=== PATIENT | female | born 1960 | race American Indian/Alaskan Native ===

== ENCOUNTER 2016-11-11 10:20 | Outpatient (CLI) | payer MEDICARE, OTHER | END 2016-11-11 10:21 | disposition home or self-care (01) | LOC: LABHHL 10:20 | PROVIDERS: ATTEND Internal Medicine | DX: A32.9 Listeriosis, unspecified (principal); I10 Essential (primary) hypertension; F32.9 Major depressive disorder, single episode, unspecified; E03.9 Hypothyroidism, unspecified | CPT/HCPCS: 87045 ==

== ENCOUNTER 2017-03-09 10:54 | Outpatient (CLI) | payer MEDICARE, OTHER ==
--- NOTE | 2017-03-10 08:46 | Mammography Report ---
BILATERAL DIGITAL SCREENING MAMMOGRAM with CAD: 03/09/17 10:54:00 CLINICAL: Routine screening. COMPARISON:03/23/14 FINDINGS: The breasts are almost entirely fatty. No mass, architectural distortion or suspicious calcifications. IMPRESSION: No mammographic evidence of malignancy. BI-RADS CATEGORY: 1 - - Negative RECOMMENDATION: Routine mammographic screening in one year. COMMENT: Patient follow-up letters are generated by our [employer] application.
--- NOTE | 2017-03-10 08:48 | Mammography Report ---
BONE DEXA:03/09/17 10:54:00 CLINICAL: Postmenopausal.Hypothyroidism, hypercalcemia and history of steroid use. TECHNIQUE: Two site bone DEXA performed on an Hologic scanner. FINDINGS: The average BMD of the lumbar spine L1-L4 is 1.014g/cm squared with a T-score of -1.2 and a Z-score of +0.2. The average BMD of the left hip is 0.781g/cm squared with a T-score of -1.6 and a Z-score of by 0.9. IMPRESSION: WHO classification: Osteopenia with increased fracture risk based on the spine and left hip measurements. RECOMMENDATION: Clinical correlation and routine screening. DEFINITIONS: BMD = Bone Mineral Density T-score = BMD related to mean peak bone mass of young adult (mean expressed in Standard Deviation) Z-score = Age matched BMD expressed in SD World Health Organization (WHO) Diagnostic Criteria Normal T-score > -1 SD Osteopenia T-score between -1 and -2.4 SD Osteoporosis T-score -2.5 SD or below NOTE: BMD is not the only risk factor for fracture. One should also consider factors such as the patient's age, risk of falling, previous osteoporotic fracture, family history of osteoporotic fractures, current smoker, and low body weight. Z-scores are not calculated if >80 years of age.
== END 2017-03-09 10:55 | disposition home or self-care (01) ==
LOC: SPVWC 10:54
PROVIDERS: ATTEND Obstetrics & Gynecology Gynecology
DX: Z12.31 Encounter for screening mammogram for malignant neoplasm of breast (principal); M85.88 Other specified disorders of bone density and structure, other site; E03.9 Hypothyroidism, unspecified; E83.52 Hypercalcemia; Z78.0 Asymptomatic menopausal state; Z79.52 Long term (current) use of systemic steroids
CPT/HCPCS: 77080; G0202; 77067

== ENCOUNTER 2017-03-16 13:12 | Outpatient (CLI) | payer MEDICARE, OTHER ==
--- NOTE | 2017-03-16 13:44 | XRay Report ---
X-RAY LEFT CLAVICLE 2 VIEWS: 03/16/17 CLINICAL: Pain. FINDINGS: No fracture or dislocation. Mild acromioclavicular joint arthritis. The glenohumeral joint and the rest of the shoulder are unremarkable. IMPRESSION: Mild acromioclavicular joint arthritis.
== END 2017-03-16 13:13 | disposition home or self-care (01) ==
LOC: SPVIMAG 13:12
PROVIDERS: ATTEND Orthopaedic Surgery
DX: M19.012 Primary osteoarthritis, left shoulder (principal); I10 Essential (primary) hypertension; E03.9 Hypothyroidism, unspecified; F32.9 Major depressive disorder, single episode, unspecified

== ENCOUNTER 2018-03-16 13:17 | Outpatient (CLI) | payer MEDICARE, OTHER ==
--- NOTE | 2018-03-17 10:32 | Mammography Report ---
Bilateral mammogram: Compared to 03/09/17. CAD study utilized. Findings: Predominance adipose tissue bilaterally. New 3 mm focal asymmetry lower anterior right breast. No microcalcifications. Normal axilla. Impression: Focal asymmetry right breast. Recommend spot compression and sonographic examination. BI-RADS CATEGORY: 0 = Needs additional imaging evaluation ACR BI-RADS MAMMOGRAPHIC CODES: 0 = Needs additional imaging evaluation; 1 = Negative; 2 = Benign; 3 = Probably benign; 4 = Suspicious; 5 = Malignant; 6 = Known biopsy-proven malignancy COMMENT: 1. Dense breast tissue, i.e., adenosis, fibrocystic changes, etc., may obscure an underlying neoplasm. 2. Approximately 10% of cancers are not detected with mammography. 3. A negative mammography report should not delay biopsy if a clinically suspicious mass is present. COMMENT: Patient follow-up letters are generated in [employer].
== END 2018-03-16 13:18 | disposition home or self-care (01) ==
LOC: SPVWC 13:17
PROVIDERS: ATTEND Obstetrics & Gynecology Gynecology
DX: Z12.31 Encounter for screening mammogram for malignant neoplasm of breast (principal); I10 Essential (primary) hypertension; E03.9 Hypothyroidism, unspecified; Z90.49 Acquired absence of other specified parts of digestive tract; Z90.710 Acquired absence of both cervix and uterus
CPT/HCPCS: 77067

== ENCOUNTER 2019-07-27 13:25 | Outpatient (CLI) | payer MEDICARE, OTHER ==
--- NOTE | 2019-08-01 08:43 | Mammography Report ---
DIGITAL SCREENING MAMMOGRAM WITH CAD, 07/29/2019 INDICATION: Routine screening mammography. TECHNIQUE: Digital bilateral 2D mammography was obtained in the craniocaudal and mediolateral obliq ue projections. This examination was interpreted with the benefit of Computer-Aided Detection analysi s. COMPARISON: 03/16/2018 FINDINGS: Breast Density: The breasts are almost entirely fatty. There is no evidence of dominant mass, suspicious calcifications or architectural distortion in eithe r breast. IMPRESSION: No mammographic evidence of malignancy. Follow up recommendation: Routine yearly BI-RADS Category 1: Negative. A "normal" or negative report should not discourage follow up or biopsy of a clinically significant f inding. A written summary of these findings will be mailed to the patient. The patient will be entered into a mammography reporting system which will generate a reminder letter for the patient's next appointmen t at the appropriate interval. The [employer] recommends yearly mammograms starting at age 40 and continuing as l fiorella as a woman is in good health. Breast MRI is recommended for women with an approximate 20-25% or greater lifetime risk of breast cancer, including women with a strong family history of breast or ova inna cancer or who have been treated for Hodgkin's disease. Signer Name: Demarco Gonzales MD Signed: 08/01/2019 8:38 AM Workstation Name: [id number]
--- NOTE | 2019-08-01 13:46 | Mammography Report ---
BONE DEXA CLINICAL: Postmenopausal. COMPARISON: 03/09/2017 TECHNIQUE: 2 site bone DEXA performed on an Hologic scanner. FINDINGS: The average BMD of the lumbar spine L1-L4 is 0.990g/cm squared with a T score of -1.5 and a Z score o f +0.2. This compares to 1.014g/cm squared on the last exam and represents a -2.4 % change from the p revious baseline. The average BMD of the left hip is 0.743 g/cm squared with a T score of -1.8and a Z score of -1.0. Th is compares to 0.781 g/cm squared on the last exam and represents a -4.9 % change from the previous b aseline. IMPRESSION: 1. WHO classification: Osteopenia with increased fracture risk based on spine measurements. 2. WHO classification Osteopenia with increased fracture risk based on left hip measurements. 3. A moderate decline in left hip BMD and less of a decline in spine BMD compared to the baseline exa m. RECOMMENDATION: Clinical correlation and routine screening. Definitions: BMD equal bone mineral density T score = BMD related to peak bone mass of young adult ([place] expressed an standard deviation) Z score = age-matched BMD expressed in SD World health organization (WHO) diagnostic criteria Normal T score greater than equal to 1 standard deviation Osteopenia T score between -1 and -2.4 standard deviation Osteoporosis T score -2.5 standard deviation or below. Note: BMD is not the only risk factor for fracture; also consider factors such as the patient's age, risk of falling, previous osteoporotic fracture, family history of osteoporotic fractures, current sm oker and low body weight. Z scores are not calculated if greater than 80 years of age. Signer Name: Demarco Gonzales MD Signed: 08/01/2019 1:41 PM Workstation Name: [id number]
== END 2019-07-27 13:26 | disposition home or self-care (01) ==
LOC: SPVWC 13:25
PROVIDERS: ATTEND Internal Medicine
DX: Z12.31 Encounter for screening mammogram for malignant neoplasm of breast (principal); Z13.820 Encounter for screening for osteoporosis; M85.89 Other specified disorders of bone density and structure, multiple sites
CPT/HCPCS: 77067; 77080

== ENCOUNTER 2020-08-15 11:06 | Outpatient (CLI) | payer MEDICARE, OTHER ==
--- NOTE | 2020-08-15 12:10 | Mammography Report ---
DIGITAL SCREENING MAMMOGRAM WITH CAD, 08/15/2020 CLINICAL INFORMATION / INDICATION: Routine screening mammography. SCREENING MAMMO TECHNIQUE: Digital bilateral 2D mammography was obtained in the craniocaudal and mediolateral obliqu e projections. This examination was interpreted with the benefit of Computer-Aided Detection analysis . COMPARISON: 03/23/2014 through 07/27/2019. FINDINGS: Breast Density: The breasts are almost entirely fatty. No dominant mass, suspicious calcifications, or architectural distortion in either breast. IMPRESSION: No mammographic evidence of malignancy. Follow up recommendation: Routine yearly BI-RADS Category 1: Negative. A "normal" or negative report should not discourage follow up or biopsy of a clinically significant f inding. A written summary of these findings will be mailed to the patient. The patient will be entered into a mammography reporting system which will generate a reminder letter for the patient's next appointmen t at the appropriate interval. The [employer] recommends yearly mammograms starting at age 40 and continuing as l fiorella as a woman is in good health. Breast MRI is recommended for women with an approximate 20-25% or greater lifetime risk of breast cancer, including women with a strong family history of breast or ova inna cancer or who have been treated for Hodgkin's disease. Signer Name: Gonzalo Bingham MD Signed: 08/15/2020 12:06 PM Workstation Name: [id number]
== END 2020-08-15 11:07 | disposition home or self-care (01) ==
LOC: SPVWC 11:06
PROVIDERS: ATTEND Obstetrics & Gynecology Gynecology
DX: Z12.31 Encounter for screening mammogram for malignant neoplasm of breast (principal)
CPT/HCPCS: 77067